=== PATIENT | male | born 1955 | race Caucasian/White ===

== ENCOUNTER 2020-02-16 10:06 | Outpatient (REF) | payer OTHER, SELFPAY | END 2020-02-16 10:07 | disposition home or self-care (01) | LOC: CF 10:06 | PROVIDERS: Visit Provider Internal Medicine Gastroenterology | DX: K86.1 Other chronic pancreatitis (principal); R29.91 Unspecified symptoms and signs involving the musculoskeletal system; R10.11 Right upper quadrant pain; Z91.018 Allergy to other foods; F10.21 Alcohol dependence, in remission | CPT/HCPCS: 36415; 86003 ==

== ENCOUNTER → 2020-02-22 09:59 | Outpatient (BNVA) | payer OTHER, SELFPAY | PROVIDERS: PCP Pediatrics; Visit Provider Internal Medicine Cardiovascular Disease | DX: Z76.89 Persons encountering health services in other specified circumstances (principal) ==

== ENCOUNTER → 2020-03-15 08:29 | Outpatient (REF) | payer OTHER, SELFPAY ==
--- NOTE | 2020-03-15 | NM_ITS ---
Exercise Myocardial perfusion study Indication: Chest pain with equivocal regular stress test evaluate for myocardial ischemia Technique: The patient was brought in for an exercise perfusion study on 03/15/2020. Patient performed exercise as per Luis protocol and was injected 30 mCi of sestamibi was given intravenously one target HR was achieved. Images were obtained using the SPECT gamma camera interlaced with the gating device. Images were obtained in supine position. Resting perfusion study was performed on 03/18/2020. Patient was administered 30 mCi of sestamibi intravenously at rest. Images were then obtained in supine position. Images obtained with and without CT attenuation. Total DLP 83 MGY-CM. Images were processed with the software and compared side to side in short axis, horizontal long axis and vertical long axis views. Findings: The stress perfusion study showed non attenuated images of minimally reduced remainder of the LV myocardium is normally perfused. Attenuation corrected images show minimally reduced uptake in the apex of the LV myocardium.. The gated study shows normal LV systolic function with calculated LVEF of greater than 70 %. LV cavity is normal in size. The gated study shows normal systolic wall thickening and contraction of all segments. There is no transient ischemic dilation. Resting study shows nontender images show mildly reduced uptake in the inferior wall of the LV myocardium. Attenuation corrected images show mildly reduced uptake in the distal anterior and apical myocardium.. Gating at rest reveals normal systolic wall motion with ejection fraction at 55%. The findings are consistent with normal myocardial perfusion. NM/NM katerine perf SPECT rest & str Impression: 1. Normal myocardial perfusion 2. Gated LVEF is greater than 70% 3. Transient ischemic dilatation not present Stress EKG is positive for ischemia
--- NOTE | 2020-03-15 08:35 | CA_ITS ---
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 Normal LV systolic function with impaired relaxation filling pattern 2. Normal cardiac valvular Doppler 3. Normal RV systolic pressure 4. No pericardial effusion Findings Left Ventricle Normal left ventricular size, thickness, and systolic function. The visually estimated ejection fraction is between 65-70%. Spectral Doppler is indicative of an impaired relaxation filling pattern. Right Ventricle Normal right ventricular cavity size and systolic function. Atria The left atrium is likely dilated. Interatrial shunt cannot be excluded. The right atrium is normal in size. Aortic Valve There is mild calcification of the aortic valve. There is no aortic valve stenosis. There is no aortic valve regurgitation. Mitral Valve There is mild anterior and posterior mitral leaflet thickening. There is trace mitral valve regurgitation. There is no mitral valve stenosis. Pulmonic Valve The pulmonic valve was not well visualized. Tricuspid Valve Likely normal tricuspid valve structure and function. There is trace tricuspid valve regurgitation. The right ventricular systolic pressure is normal. The right ventricular systolic pressure is 25 mmHg. Normal right atrial pressure. There is no evidence of pulmonary hypertension. Great Vessels All visible segments of the aorta are normal in size. The pulmonary artery was not well visualized. Venous The inferior vena cava is normal in size and collapses greater than 50% with inspiration. Pericardium/Pleural There is no evidence of pericardial effusion. Prior Study Comparison No prior study available for comparison. Measurements 2D Linear Measurements IVSd: 1.13 0.6-0.9/0.6-1.0 cm LVIDd: 5.06 3.9-5.3/4.2-5.9 cm LVIDd Index: 2.38 2.4-3.2/2.2-3.1 cm/m2 LVIDs: 3.22 2.0-3.6 cm LVPWd: 0.98 0.7-1.1 cm Ao Root: 3.40 2.1-3.5 cm LA Diam: 4.10 2.7-3.8/3.0-4.0 cm LAIDs Index: 1.92 1.5-2.3 cm/m2 LV Mass: 249.09 67-162/88-224 g LV Mass Index: 116.94 43-95/49-115 g/m2 LVOT Diam: 2.00 3.0+(-)1.3 cm 2D Systolic Function EF 4C: 74.60 >55% EF 2C: 62.50 >55% EF BiP: 69.90 >55% Mitral Valve MV Pk E: 0.97 MV PK A: 0.84 MV Decel Time: 145.00 E/A: 1.20 E'Lateral: 7.83 E'Medial: 8.49 E/E' Med: 11.40 E/E' Lat: 12.40 PHT: 43.00 MVA PHT: 5.12 Decel [place]: 6.68 Aortic Valve AoV Pk Mehdi: 1.36 AoV Pk Grad: 7.00 LVOT LVOT Pk Mehdi: 0.97 LVOT Mn Mehdi: 0.58 LVOT VTI: 0.23 LVOT Pk Grad: 4.00 LVOT Mn Grad: 2.00 LVOT Diam: 2.00 LVOT Area: 3.14 Diastolic Function MV Pk E: 0.97 MV Pk A: 0.84 E/A: 1.20 E'Medial: 8.49 E/E' Med: 11.40 E' Laterial: 7.83 E/E' Lat: 12.40 Tricuspid Valve TR Pk Mehdi: 2.35 TR Pk Grad: 22.00 RA Press: 3.00 RVSP: 25.00 Great Vessels Aorta Ao Root-2D: 3.40 2.0-3.7 cm Ao Asc: 3.50 2.1-3.4 cm Updated in Other Vendor System with Status of Final Hilario Real MD electronically signed on 03/16/2020 12:49:51 PM with status of Final
--- NOTE | 2020-03-15 10:00 | CA_ITS ---
Acquisition Time: 2020-03-15 10:10:13 Total Exercise Time: 00:09:20 Test Indications: BARTH, CP Medications: SEE CHART Protocol: VIKAS Max HR: 146 BPM 95% of Pred: 153 BPM Max BP: 168/070 mmHG Max Work Load: 10.6 METS Ecersice stress nuclear using Vikas protocol, while walking on treadmill. Total of 9 min 20 sec. with THR 87 % at peak exercise. 10.6 METS. Pt reporte CP at 1/10 before exercise, then CP up to 3/10 at peak exercise, thjat resolved to baseline in recovery. EKG without arrhythmias, horizontal ST depressions seen inferiorly and laterally suggestive of ischemic changes. Nuclear images to follow. Normotensive response to exercise. Test reviewed with Dr. Stephenson. Referred By: Fabricio King Overread By: Yashira Gomez
== END ==
LOC: HO.CARD 08:29
PROVIDERS: PCP Pediatrics; Visit Provider Internal Medicine Cardiovascular Disease
DX: R94.39 Abnormal result of other cardiovascular function study (principal); R06.00 Dyspnea, unspecified
CPT/HCPCS: 78452; 93017; 93306; A9500

== ENCOUNTER 2020-03-22 09:26 | Outpatient (REF) | payer OTHER, SELFPAY ==
[2020-03-22 10:32] LABS: Hematocrit 43.9 % (42-52); Hemoglobin 14.5 g/dl (14.0-18.0); Mean Corpuscular Hemoglobin 29.9 pg (27.0-33.0); Mean Corpuscular Volume 90.5 fL (80-98); Mean Platelet Volume 9.3 fL (9.4-12.4); Platelet Count 322 X10*3/uL (160-400); Red Blood Count 4.85 X10*6/uL (4.60-5.80); Red Cell Distribution Width 12.6 % (11.0-16.0); White Blood Count 7.4 X10*3/uL (4.8-10.8)
[2020-03-22 10:34] LABS: INTERNATIONAL NORM RATIO 0.9 (0.9-1.1)
[2020-03-22 10:55] LABS: Anion Gap 12 (12-20); Blood Urea Nitrogen 16 mg/dL (9-16); Calcium 8.4 mg/dL (8.4-10.2); Carbon Dioxide 30 mmol/L (22-29); Chloride 103 mmol/L (96-108); Estimated Glomerular Filt Rate > 60; Glucose Random 134 mg/dL (60-115); Potassium 4.4 mmol/l (3.3-5.1); Sodium 141 mmol/L (135-145)
== END 2020-03-22 09:27 | disposition home or self-care (01) ==
LOC: HO.LAB 09:26
PROVIDERS: PCP Pediatrics; Visit Provider Internal Medicine Cardiovascular Disease
DX: R94.39 Abnormal result of other cardiovascular function study (principal); R06.00 Dyspnea, unspecified
CPT/HCPCS: 36415; 80048; 85027; 85610

== ENCOUNTER → 2020-04-08 12:46 | Outpatient (BNVA) | payer OTHER, SELFPAY | PROVIDERS: PCP Pediatrics; Visit Provider Internal Medicine Cardiovascular Disease | DX: Z76.89 Persons encountering health services in other specified circumstances (principal) ==

== ENCOUNTER 2020-06-10 17:04 | Emergency (ER) | payer OTHER, SELFPAY ==
[2020-06-10 17:15] VITALS: BP 134/76; BP 185/72; PULSE 75; PULSE 77; RESP 16; TEMP 36.6; O2SAT 95; BMI 28.5
--- NOTE | 2020-06-10 17:34 | ED_ITS ---
History of Present Illness General Chief Complaint: Epistaxis Stated Complaint: nose bleed Time Seen by Provider: 06/10/20 17:28 Source: patient Mode of arrival: ambulatory Limitations: no limitations History of Present Illness HPI Narrative: 65-year-old male with a past medical history of coronary artery disease status post PCI on praugrel, known AAA, COPD, PVD, high cholesterol, diabetic, GERD here with complaints of right-sided nose bleed. Patient tells me that he had an episode around 08:00 this morning which lasted 15-20 minutes and self-resolved. He had additional episode this afternoon around 15:00 which he was unable to stop. No previous history of nose bleeds. No fall or injury. Patient is on an antiplatelet. Location: Yes right nares Onset/current episode: Yes hour(s) Duration: Yes intermittent Treatment prior to arrival: Yes none Related Data Home Medications Medication Instructions Recorded Confirmed amlodipine 10 mg tablet 10 mg PO DAILY 02/14/20 04/08/20 atenolol 25 mg tablet 25 mg PO DAILY 02/14/20 04/08/20 atorvastatin 20 mg tablet 20 mg PO DAILY 02/14/20 04/08/20 blood sugar diagnostic #10 ea 02/14/20 04/08/20 flu vacc (65yr 0.5 ml IM 02/14/20 04/08/20 up)-MF59C(PF) 45 mcg(15 mcgx3)/0.5 mL IM syringe hydrochlorothiazide 12.5 mg tablet 12.5 mg PO DAILY 02/14/20 04/08/20 insulin detemir U-100 100 unit/mL unit SUBCUT 02/14/20 04/08/20 (3 mL) subcutaneous pen insulin lispro 100 unit/mL unit SUBCUT 02/14/20 04/08/20 subcutaneous pen lancets 28 gauge #100 ea 02/14/20 04/08/20 losartan 100 mg tablet 100 mg PO DAILY 02/14/20 04/08/20 metformin 1,000 mg tablet 1,000 mg PO BID 02/14/20 04/08/20 pen needle, diabetic 31 gauge x #50 jeanette 02/14/20 04/08/20 3/16 albuterol sulfate 90 mcg/actuation 1 inh INHALATION QID 02/16/20 04/08/20 aerosol inhaler insulin detemir U-100 100 unit/mL 10 unit SUBCUT BEDTIME 02/16/20 04/08/20 (3 mL) subcutaneous pen insulin lispro 100 unit/mL 5.5 unit SUBCUT BEDTIME 02/16/20 04/08/20 subcutaneous half-unit pen rahxzu-zrmkllni-kixdbby 1 cap PO BID 02/16/20 04/08/20 15,000-47,000-63,000 unit capsule,delayed rel aspirin 81 mg tablet,delayed 81 mg PO DAILY 02/22/20 04/08/20 release omeprazole 40 mg capsule,delayed 20 mg PO DAILY cap 04/08/20 04/08/20 release Previous Rx's Medication Instructions Recorded rtfrwl-lxukhxzu-htoqalm 2 cap PO QID 90 Days #720 cap 02/16/20 15,000-47,000-63,000 unit capsule,delayed rel famotidine 20 mg tablet 20 mg PO BID #3 tab 03/21/20 prasugrel 10 mg tablet 10 mg PO DAILY 90 Days #90 tab 03/28/20 Allergies Allergy/AdvReac Type Severity Reaction Status Date / Time gluten [GLUTEN] Allergy Mild UNKNOWN Verified 04/08/20 13:44 Iodinated Contrast Media Allergy Unknown HIVES Verified 04/08/20 13:44 [IODINATED CONTRAST- ORAL AND IV DYE] morphine [MORPHINE] Allergy Unknown RASH Verified 04/08/20 13:44 Review of Systems Review of Systems: Yes all other systems are reviewed and are negative Constitutional: Constitutional: Reports no additional constitutional complaints, Denies body ache(s), Denies chills, Denies fever(s), Denies headache(s) and Denies weakness Eyes: Eyes: Reports no additional eye complaints and Denies change in vision ENT: Reports system reviewed and no additional complaints, except as documented, Denies dizziness, Denies headache(s), Reports epistaxis, Denies nasal congestion, Denies nasal discharge and Denies neck pain Cardiovascular: Cardiovascular: Reports no additional cardiovascular complaints, Denies chest pain, Denies leg edema and Denies dyspnea Respiratory: Respiratory: Reports no additional respiratory complaints, Denies cough and Denies dyspnea Gastrointestinal: Gastrointestinal: Reports no additional gastrointestinal complaints, Denies abdominal pain, Denies diarrhea, Denies nausea and Denies vomiting Genitourinary: Genitourinary: Denies urinary incontinence Musculoskeletal: Musculoskeletal: Reports no additional musculoskeletal complaints, Denies back pain, Denies arthralgias, Denies joint swelling, Denies neck pain, Denies numbness and Denies tingling Integumentary/Breasts: Skin/Breast: Reports system reviewed and no additional complaints, except as docu and Denies rash Neurologic: Reports system reviewed and no additional complaints, except as documented, Denies Abnormal speech present, Denies dizziness, Denies headache(s), Denies numbness, Denies tingling and Denies weakness [facility] Past Medical History Attestation statement: The following information was validated with the patient. Source: old records reviewed and nursing notes reviewed Medical History AAA (abdominal aortic aneurysm) COPD (chronic obstructive pulmonary disease) PVD (peripheral vascular disease) Varicose vein of leg Surgical History History of cardiac cath Hx of cholecystectomy Hx of colonoscopy Hx of endoscopy Family History Family History Father Cancer Mother Cancer Social History Social History Alcohol intake: never Smoking Status: Never smoker Advance Directives: No Advance Directives Information Provided: Yes Physical Exam Vital Signs: Vital Signs: Last Vital Signs Temp 97.8 F 06/10/20 18:00 Pulse 72 06/10/20 18:49 Resp 20 06/10/20 18:49 BP 161/74 H 06/10/20 18:49 Pulse Ox 92 06/10/20 18:49 Body Mass Index 28.5 Const: General: cooperative, healthy appearing, comfortable and no acute distress Orientation/consciousness: patient oriented x3 Limitations: no limitations HENMT: Head: Yes normal to inspection Ears: hearing grossly normal bilaterally General nose exam: Normal external nose present, Normal septum present, Abnormal mucous membranes and turbinates present erythematous and Epistaxis present (Right anterior vessel bleeding) Face and sinus: Yes normal facial exam Mouth: Normal oral and palatal mucosa present Throat: Yes posterior oropharynx normal Eyes: General: appearance normal, both eyes and all related structures Pupils: Equal, round and reactive pupils present Neck: Neck: Yes normal visual inspection Chest: Chest palpation & inspection: normal inspection of the chest Resp: Effort & Inspection: normal respiratory effort Auscultation: clear to auscultation bilaterally Cardio: Rate: regular rate Rhythm: regular rhythm Peripheral pulses: Peripheral pulses 2+ throughout GI: Inspection: Yes normal to inspection Palpation (GI): Soft to palpation and nontender Auscultation: normal bowel sounds Back/Spine/Pelvis: Thoracic/Lumbar Spine: thoracic and lumbar spine normal to inspection Skin: General skin exam: no rashes or lesions noted Neuro: General: patient oriented x3, no focal motor deficits and normal sensation to monofilament Cranial nerves: Yes Equal, round and reactive pupils present Cognition (Neuro): normal cognition Speech: No Abnormal speech present Gait exam (Neuro): Normal gait present Motor exam (neuro): 5/5 motor strength present throughout Extrem: General: Yes normal to inspection Course Course Course Narrative: 65-year-old male here with right-sided nose bleed intermittent x1 day. On prasugrel. On arrival has a vessel in the right anterior naris which and appears inflamed with mild bleeding. Resolved with topical silver nitrate. Will monitor for short time and reassess. [id number] patient. No active bleeding. Monitored post silver nitrate for 1 hour with no additional bleeding episodes. Reviewed worrisome signs and symptoms and when to return to the emergency department. Comfortable discharge home. Discharge Plan Discharge Clinical Impression: Epistaxis Patient Disposition: Home, Self-Care Instructions: Nosebleed (ED) Additional Instructions: YOu may have another nosebleed in the future. If this occurs apply direct pressure and ice over those nose or back of the neck Prescriptions: No Action famotidine [Pepcid] 20 mg tablet 20 mg PO BID Qty: 3 RF: 0 prasugrel 10 mg tablet 10 mg PO DAILY 90 Days Qty: 90 RF: 3 aspirin [Adult Low Dose Aspirin] 81 mg tablet,delayed release (DR/EC) 81 mg PO DAILY RF: 0 Zenpep 15,000-47,000 -63,000 unit capsule,delayed release(DR/EC) 1 cap PO BID RF: 0 insulin lispro [Humalog Angel KwikPen U-100] 100 unit/mL insulin pen, half- unit 5.5 unit subcut BEDTIME RF: 0 Levemir FlexTouch U-100 Insuln 100 unit/mL (3 mL) insulin pen 10 unit subcut BEDTIME RF: 0 albuterol sulfate [Ventolin HFA] 90 mcg/actuation HFA aerosol inhaler 1 inh inhalation QID RF: 0 Zenpep 15,000-47,000 -63,000 unit capsule,delayed release(DR/EC) 2 cap PO QID 90 Days Qty: 720 RF: 3 (DME) lancets 28 gauge misc See Rx Instructions lancet topical TID Qty: 100 RF: 0 insulin lispro 100 unit/mL insulin pen subcut RF: 0 hydrochlorothiazide 12.5 mg tablet 12.5 mg PO DAILY RF: 0 metformin 1,000 mg tablet 1,000 mg PO BID RF: 0 losartan 100 mg tablet 100 mg PO DAILY RF: 0 atenolol 25 mg tablet 25 mg PO DAILY RF: 0 amlodipine 10 mg tablet 10 mg PO DAILY RF: 0 atorvastatin 20 mg tablet 20 mg PO DAILY RF: 0 (DME) pen needle, diabetic 31 gauge x 3/16 needle See Rx Instructions ea subcut .MEDSUPPLY Qty: 50 RF: 0 Levemir FlexTouch U-100 Insuln 100 unit/mL (3 mL) insulin pen subcut RF: 0 (DME) OneTouch Ultra Blue Test Strip Strip See Rx Instructions strip .ROUTE .MEDSUPPLY Qty: 10 RF: 0 Fluad [id number] (65 yr up)(PF) 45 mcg (15 mcg x 3)/0.5 mL syringe 0.5 ml IM RF: 0 omeprazole 40 mg capsule,delayed release(DR/EC) 20 mg PO DAILY RF: 0 Referrals: Physician,Unknown [Primary Care Provider] - 2 days Interventions: ED Discharge Assessment Last Done: 06/10/20 18:49 Discharge Date/Time: 06/10/20 18:50
[2020-06-10 18:00] VITALS: BP 151/66; PULSE 82; RESP 16; TEMP 36.6; O2SAT 93
[2020-06-10] MEDS: Silver Nitrate Applicator STICK..EA. 1 APPL TOPICAL (18:29)
[2020-06-10 18:49] VITALS: BP 161/74; PULSE 72; RESP 20; O2SAT 92
== END 2020-06-10 18:50 | disposition home or self-care (01) ==
PROVIDERS: Emergency Provider Emergency Medicine Emergency Medical Services
DX: R04.0 Epistaxis (principal)
CPT/HCPCS: 99284

== ENCOUNTER → 2020-06-13 08:31 | Outpatient (BNVA) | payer OTHER, SELFPAY | PROVIDERS: PCP Pediatrics; Visit Provider Hospitalist ==

== ENCOUNTER 2020-06-19 07:13 | Outpatient (REF) | payer OTHER, SELFPAY ==
[2020-06-19 08:01] LABS: Hematocrit 45.7 % (42-52); Hemoglobin 15.1 g/dl (14.0-18.0); Mean Corpuscular Hemoglobin 29.8 pg (27.0-33.0); Mean Corpuscular Volume 90.1 fL (80-98); Mean Platelet Volume 9.5 fL (9.4-12.4); Platelet Count 338 X10*3/uL (160-400); Red Blood Count 5.07 X10*6/uL (4.60-5.80); Red Cell Distribution Width 12.9 % (11.0-16.0); White Blood Count 8.8 X10*3/uL (4.8-10.8)
== END 2020-06-19 07:14 | disposition home or self-care (01) ==
LOC: HO.LAB 07:13
PROVIDERS: PCP Pediatrics; Visit Provider Internal Medicine Cardiovascular Disease
DX: R04.0 Epistaxis (principal)
CPT/HCPCS: 36415; 85027

== ENCOUNTER → 2020-07-04 08:42 | Outpatient (BNVA) | payer OTHER, SELFPAY | PROVIDERS: PCP Pediatrics; Visit Provider Anesthesiology ==

== ENCOUNTER 2020-07-19 10:28 | Outpatient (REF) | payer OTHER, SELFPAY ==
--- NOTE | 2020-07-19 11:26 | ECG_ITS ---
Test Reason : COPD Blood Pressure : / mmHG Vent. Rate : 060 BPM Atrial Rate : 060 BPM P-R Int : 172 ms QRS Dur : 092 ms QT Int : 450 ms P-R-T Axes : 069 -72 052 degrees QTc Int : 450 ms Normal sinus rhythm Left axis deviation Inferior infarct , age undetermined Abnormal ECG When compared with ECG of 10-JAN-2020 10:00, Nonspecific T wave abnormality no longer evident in Anterolateral leads Referred By: Robinson Adame Electronically Signed By:KACI GAMBOA
[2020-07-19 11:58] LABS: MANUAL DIFF FLAG NO
[2020-07-19 12:02] LABS: Basophils Percent Auto 0.3 % (0-2); Eosinophils Absolute Auto 0.1 X10*3/uL (0.0-0.4); Eosinophils Percent Auto 1.4 % (0-4); Hematocrit 49.1 % (42-52); Hemoglobin 16.4 g/dl (14.0-18.0); Imm Gran Abs Auto 0.03 X10*3/uL (0.00-0.03); Imm Gran Pct Auto 0.3 % (0.0-0.4); Lymphocytes Absolute Auto 1.2 X10*3/uL (1.2-4.9); Lymphocytes Percent Auto 13.3 % (20-40); Mean Corpuscular HGB Conc 33.4 g/dl (31.0-36.0); Mean Corpuscular Hemoglobin 29.9 pg (27.0-33.0); Mean Corpuscular Volume 89.4 fL (80-98); Mean Platelet Volume 9.5 fL (9.4-12.4); Monocytes Absolute Auto 0.8 X10*3/uL (0.1-1.2); Monocytes Percent Auto 8.8 % (2-11); Neutrophils Absolute Auto 7.1 X10*3/uL (2.0-8.3); Neutrophils Percent Auto 75.9 % (45-73); Platelet Count 370 X10*3/uL (160-400); Red Blood Count 5.49 X10*6/uL (4.60-5.80); Red Cell Distribution Width 12.8 % (11.0-16.0); White Blood Count 9.4 X10*3/uL (4.8-10.8)
[2020-07-19 12:32] LABS: Troponin-I High Sensitivity < 3.5 ng/L (<3.5-35.0)
[2020-07-19 13:16] LABS: Erythrocyte Sedimentation Rate 9 MM/HR (0-15)
== END 2020-07-19 10:29 | disposition home or self-care (01) ==
LOC: HO.LAB 10:28
PROVIDERS: PCP Pediatrics; Visit Provider Hospitalist
DX: J44.9 Chronic obstructive pulmonary disease, unspecified (principal); R07.81 Pleurodynia; R91.8 Other nonspecific abnormal finding of lung field; G47.33 Obstructive sleep apnea (adult) (pediatric)
CPT/HCPCS: 36415; 84484; 85025; 85652; 93005

== ENCOUNTER → 2020-07-22 08:39 | Outpatient (BNVA) | payer OTHER, SELFPAY | PROVIDERS: PCP Pediatrics; Visit Provider Internal Medicine Gastroenterology ==

== ENCOUNTER → 2020-07-31 08:50 | Outpatient (BNVA) | payer OTHER, SELFPAY | PROVIDERS: PCP Pediatrics; Visit Provider Internal Medicine Cardiovascular Disease | DX: R06.00 Dyspnea, unspecified (principal); I25.10 Atherosclerotic heart disease of native coronary artery without angina pectoris; I10 Essential (primary) hypertension | CPT/HCPCS: 93005 ==

== ENCOUNTER 2020-08-12 08:41 | Outpatient (REF) | payer OTHER, SELFPAY ==
--- NOTE | 2020-08-12 14:08 | PFT_ITS ---
FLOWS: FEV1 of 89% of predicted at 3.21 L. FVC 84% of predicted at 4.09 L. FEV1 to FVC ratio of 0.78. No bronchodilator response. LUNG VOLUMES: Total lung capacity 94% of predicted at 6.98 L. Residual volume 101% of predicted at 2.55 L. Slow vital capacity 90% of predicted at 4.43 L. Expiratory reserve volume 45% of predicted at 0.66 L. Diffusion capacity is mildly decreased. IMPRESSION: No obstructive or restrictive ventilatory defect. No bronchodilator response. Decreased diffusion capacity suggests emphysema. Hiram Jordan MD AP/MODL / [id number]
== END 2020-08-12 08:42 | disposition home or self-care (01) ==
LOC: HO.RESP 08:41
PROVIDERS: PCP Pediatrics; Visit Provider Hospitalist
DX: G47.33 Obstructive sleep apnea (adult) (pediatric) (principal)
CPT/HCPCS: 94060; 94727; 94729

== ENCOUNTER 2020-09-11 07:19 | Day surgery (SDC) | payer OTHER, SELFPAY ==
[2020-09-11 07:35] VITALS: BMI 26.3
[2020-09-11] MEDS: Lactated Ringers 1,000 ML 100 ML IVCONT (07:39)
[2020-09-11 07:53] VITALS: BP 138/60; PULSE 62; RESP 14; TEMP 36.3; O2SAT 96; BMI 26.3
--- NOTE | 2020-09-11 07:53 | HO.ANESPROP2 ---
HPI - Anesthesia Eval Consult details Narrative: 65 male patient here for EGD, Colonoscopy PMF Active Problems Active Problems: All Active Problems (Updated 09/06/20 @ 14:50 by Jessy Bond) Musculoskeletal abnormal finding on examination (Acute) Chronic pancreatitis (Acute) Food allergy (Acute) Chest pain (Acute) BARTH (dyspnea on exertion) (Acute) Equivocal stress test (Acute) Contrast media allergy (Acute) Status post coronary angioplasty (Acute) Coronary artery disease (Acute) WALE (obstructive sleep apnea) (Acute) Epistaxis (Acute) Small bowel obstruction due to adhesions (Acute) Barretts esophagus (Acute) Essential hypertension (Acute) Pulmonary nodules (Acute) WALE (obstructive sleep apnea) (Acute) Steatohepatitis (Acute) WALE on CPAP (Acute) PVD (peripheral vascular disease) (Acute) Varicose vein of leg (Acute) COPD (chronic obstructive pulmonary disease) (Acute) AAA (abdominal aortic aneurysm) (Acute) Past Medical History Medical History (Updated 09/11/20 @ 09:38 by Emma Lopez) AAA (abdominal aortic aneurysm) CAD (coronary artery disease) COPD (chronic obstructive pulmonary disease) Encounter for nasogastric (NG) tube placement WALE on CPAP Pulmonary nodules PVD (peripheral vascular disease) Steatohepatitis Varicose vein of leg Family History Family History Father Cancer Mother Cancer Family history of problems with anesthesia: No Surgical History Surgical History History of cardiac cath Hx of cholecystectomy Hx of colonoscopy Hx of endoscopy History of Problems with Anesthesia: No Social History Social History (Updated 09/11/20 @ 09:33 by Emma Lopez) Household Members: Spouse Alcohol intake: never Smoking Status: Former smoker Use of substances other than those prescribed or required for medical reasons: No Substance Use Type: Crack/Cocaine, Former Substance User and Marijuana Last Used Substance Other:: Very remote history Advance Directives: No Advance Directives Information Provided: Yes Meds Allergies Allergy/AdvReac Type Severity Reaction Status Date / Time Iodinated Contrast Media Allergy Severe HIVES Verified 09/06/20 14:31 [IODINATED CONTRAST- ORAL AND IV DYE] morphine [MORPHINE] Allergy Severe RASH Verified 09/06/20 14:31 gluten [GLUTEN] Allergy Mild UNKNOWN Verified 09/06/20 14:31 Home Medications Medication Instructions Recorded Confirmed Last Taken Type amlodipine 10 mg tablet 10 mg PO DAILY 02/14/20 09/06/20 Unknown History atenolol 25 mg tablet 25 mg PO DAILY 02/14/20 09/06/20 Unknown History atorvastatin 20 mg tablet 20 mg PO DAILY 02/14/20 09/06/20 Unknown History blood sugar diagnostic #10 ea 02/14/20 07/19/20 Unknown History flu vacc 2019-20(65yr 0.5 ml IM 02/14/20 07/19/20 Unknown History up)-MF59C(PF) 45 mcg(15 mcgx3)/0.5 mL IM syringe insulin detemir U-100 100 unit/mL unit SUBCUT 02/14/20 07/19/20 Unknown History (3 mL) subcutaneous pen lancets 28 gauge #100 02/14/20 07/19/20 Unknown History losartan 100 mg tablet 100 mg PO DAILY 02/14/20 09/06/20 Unknown History metformin 1,000 mg tablet 1,000 mg PO BID 02/14/20 09/06/20 Unknown History pen needle, diabetic 31 gauge x #50 02/14/20 07/19/20 Unknown History 07/30 albuterol sulfate 90 mcg/actuation 1 inh INHALATION QID 02/16/20 09/06/20 Unknown History aerosol inhaler insulin lispro 100 unit/mL 5.5 unit SUBCUT BEDTIME 02/16/20 09/06/20 Unknown History subcutaneous half-unit pen aspirin 81 mg tablet,delayed 81 mg PO DAILY 02/22/20 09/06/20 Unknown History release omeprazole 40 mg capsule,delayed 20 mg PO DAILY cap 04/08/20 09/06/20 Unknown History release insulin degludec 100 unit/mL (3 20 unit SUBCUT DAILY 06/13/20 09/06/20 Unknown History mL) subcutaneous pen empagliflozin 10 mg tablet 10 mg PO DAILY 07/04/20 09/06/20 Unknown History docusate sodium 100 mg capsule 100 mg PO BID 07/19/20 09/06/20 Unknown History hydrochlorothiazide 25 mg tablet 25 mg PO DAILY 07/19/20 09/06/20 Unknown History nystatin 100,000 unit/mL oral 5 ml PO QID 07/19/20 09/06/20 Unknown History suspension sennosides 8.6 mg tablet 17.2 mg PO DAILY 07/19/20 09/06/20 Unknown History Exam Exam Date and Time: September 11, 2020 0753 Height,Weight and Vital Signs: Height 6 ft Weight 87.997 kg Vital Signs Temp Pulse Resp BP Pulse Ox 09/11/20 07:53 97.3 F 62 14 138/60 96 Pertinent Lab Results Pertinent Lab Results: Lab Results 09/11/20 Range/Units 07:41 POC Glucose 91 (60-115) mg/dL Narrative Narrative: Patient states sugar was 91 this am. Asymptomatic but gave him 'sip' of orange juice (no pulp) around 6.15am. Patient has h/o N&V, GERD and diabetes. If Dr Aguero wishes to proceed, will intubate patient. Airway Mallampati Class: II TM Dist: >3cm Neck ROM: Limited (Back of neck/ Right shoulder chronic soreness) Denture: Upper and Lower Heart: RRR Lungs: CTAB Assessment and Plan Assessment Anesthesia Assessment: Anesthesia Plan Discussed and Chart Reviewed Final Anesthetic Review NPO: Yes ASA Class: III Final Preanesthetic Review: No Changes in Pt Med Stat, Meds/Allgs Chart Reviewed, Consent Obtained/Reviewed and Anes Risks/Benef Reviewed Patient Risk: Intermediate Procedure Risk: Low Assessment/Block/Sedation in SS: Assess/Block/Sedation-SS Anesthetic Plan Anesthetic Plan: GA (Discussed with Dr Aguero. Will proceed with GA.) Disposition: Standard PACU
[2020-09-11 07:59] LABS: Glucose, Whole Blood 91 mg/dL (60-115)
--- NOTE | 2020-09-11 08:05 | PC.NURSE ---
patient had sip of orange juice this morning after poc reading was 91. patient was asymptomatic, no change in poc. Dr Lopez aware, pt instructed if the case proceeds he will need general anesthesia. pt verbalized understanding
--- NOTE | 2020-09-11 08:36 | MHC.SHP ---
Pre-Procedural Eval Section B Chief Complaint: Navarrete's Esophagus Relevant Family History (Specify if Yes): No Relevant Social History: None Present Medications: see Short Stay Collaborative assessment Medical History: Significant History (AAA (abdominal aortic aneurysm) CAD (coronary artery disease) COPD (chronic obstructive pulmonary disease) Encounter for nasogastric (NG) tube placement WALE (obstructive sleep apnea) WALE on CPAP Pulmonary nodules PVD (peripheral vascular disease) Steatohepatitis Varicose vein of leg) History of Previous Operations: Relevant previous surgery/procedure and date(s) (cardiac cath, cholecystectomy) Allergies: Allergies Allergy/AdvReac Type Severity Reaction Status Date / Time Iodinated Contrast Media Allergy Severe HIVES Verified 09/06/20 14:31 [IODINATED CONTRAST- ORAL AND IV DYE] morphine [MORPHINE] Allergy Severe RASH Verified 09/06/20 14:31 gluten [GLUTEN] Allergy Mild UNKNOWN Verified 09/06/20 14:31 Review of Systems Sugical H&P ROS: Negative: Constitution, Cardiovascular, Respiratory, Neurological, Psychiatric, Hem-Onc, Allergic/Immunologic, Gastrointestinal, Genitourinary, Musculoskeletal, Integumentary, Endocrine and Eyes/Ears/Nose/Throat Exam Surgical H&P Exam: Normal: HEENT, Normal: Heart, Normal: Lungs, Normal: Extremities, Normal: Abdomen, Normal: Skin and Normal: Neurological Plan Diagnosis/Plan: Unchanged I have reviewed the history and physical and performed a pertinent physical examination on my patient. No changes have occurred unless specified.
--- NOTE | 2020-09-11 09:15 | PM.OP ---
Brief Operative Note Date of Service: 09/11/20 Pre-op diagnosis: abdominal pain Post-op diagnosis: same Procedure: see op note Surgeon: Eufemia Aguero MD Anesthesia: GETA Estimated blood loss (mL): 0 Condition: stable Disposition: PACU
--- NOTE | 2020-09-11 09:16 | W.PM.OPN ---
Operative Note Operative Note Date of Service: 09/11/20 Narrative: Operative Information Procedure Description: EGD, Colonoscopy FLEXIBLE TRANSORAL UPPER GASTROINTESTINAL ENDOSCOPY AND COLONOSCOPY PROCEDURE NOTE UPPER ENDOSCOPY Consent: Indications for the procedure and potential complications of bleeding, perforation, reaction to medications and missed diagnosis were discussed with the patient and informed consent was obtained. Instrument: Olympus variable stiffness pediatric scope 190L Monitoring: Vital signs and clinical assessment, continuous EKG monitoring, Pulse oximetry, Carbon Dioxide monitoring and blood pressure monitoring were done throughout the procedure. Procedure: The patient was placed in the left lateral decubitis position and pre-procedure medications were administered and a bite block was placed. The endoscope was inserted into the mouth and advanced under direct vision to the third part of duodenum. A careful inspection was made as the upper endoscope was withdrawn including a retroflexed examination of the proximal stomach; Findings and interventions are described below. Findings: Larynx:normal Esophagus: GE junction at 40 cm, diaphragm hiatus at 40 cm,short segment barretts esophagus noted < 3 cm bx taken Stomach: Scarring and atrophy of mucosa. Biopsies were obtained. Grade 2 flap valve on retroflexed examination of the cardia. Duodenum: Normal bulb and descending duodenum, Jejunum: normal, reached the proximal jejunum Intervention: Biopsies as noted above COLONOSCOPY Instrument: Olympus variable stiffness pediatric scope 190L Colonoscopy Monitoring: Vital signs and clinical assessment, continuous EKG monitoring, Pulse oximetry, Carbon Dioxide monitoring and blood pressure monitoring were done throughout the procedure. Colon withdrawal time was 13 minutes. Procedure: The patient was placed in the left lateral decubitis position and pre-procedure medications were administered. After a digital rectal examination of the ano-rectum, the video colonoscope was inserted into the rectum and advanced through the colon to the cecum/TI. The colonoscope was slowly withdrawn in a retrograde panoramic fashion and the colon mucosa was carefully examined including a retroflexed view of the rectum. Findings and interventions are described below. Procedure Difficulty: moderate Findings: Terminal Ileum-normal, bx taken Rest of colon had granular appearance, random biopsies taken, otherwise normal, no masses or polyps seen Rectum: Retroflexion with medium sized internal hemorrhoids, grade II Anorectum - normal Colon preparation: [place] Bowel Preparation Scale Right colon; 3 Transverse colon: 3 Left colon; 2 (0 = Unprepared colon segment with mucosa not seen due to solid stool that cannot be cleared. 1 = Portion of mucosa of the colon segment seen, but other areas of the colon segment not well seen due to staining, residual stool and/or opaque liquid. 2 = Minor amount of residual staining, small fragments of stool and/or opaque liquid, but mucosa of colon segment seen well. 3 = Entire mucosa of colon segment seen well with no residual staining, small fragments of stool or opaque liquid) Impression and Post Procedure Diagnosis: Endoscopy Findings: atrophic gastritis barretts esophagus Colonoscopy Findings: internal hemorrhoids granular appearing mucosa of colon Plan: Await Pathology results Repeat Colonoscopy in 10 years or earlier if clinically indicated High fiber diet leaflet avoid straining at stool, epsom salts and sitz bath, anusol supps or cream Repeat EGD in 5 yrs for barretts surveillance Above findings were reviewed with the patient and relevant handouts were provided if indicated.
[2020-09-11 09:51] VITALS: BP 110/60; PULSE 84; RESP 17; TEMP 36.2; O2SAT 94
[2020-09-11 09:56] VITALS: BP 108/57; PULSE 86; RESP 20; O2SAT 90
[2020-09-11 10:01] VITALS: BP 114/61; PULSE 78; RESP 20; O2SAT 93
[2020-09-11 10:06] VITALS: BP 106/55; PULSE 88; RESP 20; O2SAT 93
[2020-09-11 10:19] VITALS: BP 119/62; PULSE 81; RESP 18; TEMP 37.1; O2SAT 94
== END 2020-09-11 10:55 | disposition home or self-care (01) ==
PROVIDERS: PCP Pediatrics; Visit Provider Internal Medicine Gastroenterology
PROC: (CPT 45380; principal; 2020-09-11 08:30)
DX: R10.9 Unspecified abdominal pain (principal); K64.1 Second degree hemorrhoids; K22.70 Barrett's esophagus without dysplasia; K29.40 Chronic atrophic gastritis without bleeding; K44.9 Diaphragmatic hernia without obstruction or gangrene; J44.9 Chronic obstructive pulmonary disease, unspecified; G47.33 Obstructive sleep apnea (adult) (pediatric); I71.4 Abdominal aortic aneurysm, without rupture; R91.8 Other nonspecific abnormal finding of lung field; Z79.82 Long term (current) use of aspirin; Z88.8 Allergy status to other drugs, medicaments and biological substances; Z90.49 Acquired absence of other specified parts of digestive tract; Z91.041 Radiographic dye allergy status; Z87.891 Personal history of nicotine dependence
CPT/HCPCS: 45380; 43239; 82947; 88305; 88342; J0330; J2405; J2765; J3010

== ENCOUNTER 2020-10-07 07:09 | Outpatient (REF) | payer OTHER, SELFPAY ==
--- NOTE | ~2020-10-07 | CT_ITS ---
EXAMINATION: CT CHEST WITHOUT CONTRAST CLINICAL INFORMATION: Nonspecific finding of lung field COMPARISON: Lung windows from abdominal pelvic CT scan December 2019 and chest x-ray December 2019 TECHNIQUE: Multidetector volumetric CT imaging of the chest was done. Axial MIP volume rendering provided. Sagittal and coronal reformatted images were obtained. This CT examination was performed using dose optimization techniques as appropriate, variously including the following: *Automated exposure control *Adjustment of mA and/or kV according to patient size (this includes techniques or standardized protocols for targeted exams where dose is matched to indication/reason for exam; i.e. extremities or head) *Use of iterative reconstruction technique DLP: 203 mGy-cm FINDINGS: LUNGS: There is scarring or subsegmental atelectasis seen in the left lower lobe. This is similar to lung windows from abdominal pelvic CT scan December 2019. There is a 2 mm peripheral or subpleural right lower lobe nodule adjacent to the major fissure axial image 419 series 7 and left lower lobe axial image 4 3 series 7 probably representing subpleural lymph nodes. There are several clustered small peribronchial nodules in the left lower lobe and increased peribronchial attenuation suggestive of airways disease, for example axial image 426 series 7. There is a small 2 mm calcified left lower lobe nodule axial image 537 series 7. The lungs are otherwise clear. MEDIASTINUM: The heart does not appear enlarged. There is coronary artery and aortic valve calcification. The thoracic aorta is normal in caliber. There are no enlarged hilar or mediastinal lymph nodes. The visualized thyroid gland is unremarkable. PLEURA: There is no pleural effusion. No pleural mass or thickening. AXILLA: No lymphadenopathy. UPPER ABDOMEN: There are calcifications in the head of the pancreas suggestive of changes of chronic pancreatitis. This is similar to previous exam. There are postsurgical changes to the stomach OSSEOUS STRUCTURES: There are degenerative changes of the spine. CT/CT chest wo con IMPRESSION: Scarring or chronic subsegmental atelectasis in the left lower lobe similar to lung windows on December [address] scan. Small pulmonary nodules probable mild airways disease in the left lower lobe. Coronary artery and aortic valve calcification. Stable changes of chronic pancreatitis in the pancreas.
== END 2020-10-07 07:10 | disposition home or self-care (01) ==
LOC: HO.CT 07:09
PROVIDERS: Visit Provider Hospitalist
DX: R91.8 Other nonspecific abnormal finding of lung field (principal)
CPT/HCPCS: 71250

== ENCOUNTER → 2020-10-17 08:10 | Outpatient (BNVA) | payer OTHER, SELFPAY | PROVIDERS: PCP Pediatrics; Visit Provider Hospitalist | DX: R07.9 Chest pain, unspecified (principal); J44.9 Chronic obstructive pulmonary disease, unspecified ==

== ENCOUNTER → 2020-12-11 09:50 | Outpatient (BNVA) | payer OTHER, SELFPAY | PROVIDERS: PCP Pediatrics; Visit Provider Internal Medicine Cardiovascular Disease ==

== ENCOUNTER → 2021-08-12 13:38 | Outpatient (BNVA) | payer OTHER, SELFPAY | PROVIDERS: PCP Pediatrics; Visit Provider Nurse Practitioner Family | DX: I25.10 Atherosclerotic heart disease of native coronary artery without angina pectoris (principal); I10 Essential (primary) hypertension; Z95.5 Presence of coronary angioplasty implant and graft | CPT/HCPCS: 93005 ==

== ENCOUNTER 2021-09-10 08:45 | Outpatient (REF) | payer OTHER, SELFPAY ==
--- NOTE | ~2021-09-10 | CT_ITS ---
EXAMINATION: CT CHEST WITHOUT CONTRAST CLINICAL INFORMATION: Follow-up pulmonary nodule COMPARISON: Previous chest CT September 2020 TECHNIQUE: Multidetector volumetric CT imaging of the chest was done. Axial MIP volume rendering provided. Sagittal and coronal reformatted images were obtained. This CT examination was performed using dose optimization techniques as appropriate, variously including the following: *Automated exposure control *Adjustment of mA and/or kV according to patient size (this includes techniques or standardized protocols for targeted exams where dose is matched to indication/reason for exam; i.e. extremities or head) *Use of iterative reconstruction technique DLP: 193 mGy-cm FINDINGS: LUNGS: There is evidence of mild emphysema. There are increased peripheral markings seen in the left upper and left lower lobes questionable for interstitial lung disease. Changes thought to represent airways disease in the left lower lobe may represent interstitial disease with traction bronchiolectasis in the lateral lower left lower lobe. The small calcified and noncalcified pulmonary nodules are stable. No new pulmonary nodules are seen. No endobronchial or endotracheal lesions. MEDIASTINUM: There is evidence of atherosclerotic disease. The heart size is normal. There is coronary artery and aortic valve calcification. There is no pericardial effusion. The thoracic aorta is calcified but normal in caliber. There are no enlarged hilar or mediastinal lymph nodes. The esophagus is normal. PLEURA: There is no pleural effusion. No pleural mass or thickening. AXILLA: No lymphadenopathy. UPPER ABDOMEN: There are postsurgical changes to the stomach. There are calcifications in the uncinate process of the head of the pancreas suggestive of chronic pancreatitis. The upper abdominal aorta is heavily calcified. OSSEOUS STRUCTURES: There are degenerative changes of the spine. CT/CT chest wo con IMPRESSION: Mild emphysema. Question developing mild peripheral interstitial lung disease in the left lung. Stable small calcified and noncalcified pulmonary nodules. Atherosclerotic disease and severe coronary artery calcification. Stable abdominal findings. Fleischner guidelines were followed.
== END 2021-09-10 08:46 | disposition home or self-care (01) ==
LOC: HO.CT 08:45
PROVIDERS: Visit Provider Hospitalist
DX: R91.8 Other nonspecific abnormal finding of lung field (principal)
CPT/HCPCS: 71250

== ENCOUNTER → 2021-09-12 11:00 | Outpatient (BNVA) | payer OTHER, SELFPAY | PROVIDERS: PCP Pediatrics; Visit Provider Internal Medicine Gastroenterology | DX: Z13.89 Encounter for screening for other disorder (principal) ==